=== PATIENT | female | born 1960 | race African-American/Black ===

== ENCOUNTER 2017-03-09 09:47 | Emergency (ER) | payer OTHER ==
[2017-03-09] MEDS ORDERED: IV NORMAL SALINE 1,000ML 1,000 ML IV SCH (10:22)
--- NOTE | 2017-03-09 10:28 | PHYS DOC ---
General Chief Complaint: ABDOMINAL PAIN Stated Complaint: ABDOMINAL PAIN Time Seen by MD: 10:15 Source: patient Exam Limitations: no limitations Problems: History of Present Illness Initial Comments Pt is 56/F [employer] to ED via private auto (drove self) c/o abdominal pain. Pt states for past 6 mos she's had intermittent exacerbations of epigastric pain. 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 States she "worked thru the pain" until 0715 today, had small BM at that time hoping she'd feel better. Driving home decided to come for evaluation. Has h/o lap band, SBO w/resection, saw her PCP Dr Mauricio Pagan for this 3-[address] felt sx due to lap band, he encouraged her to f/u bariatric surgeon Dr Mendoza Westfall who initially placed the band. Pt says she followed up with his office and colonoscopy ordered. Pt has had difficulty getting colonoscopy and as sx subsided did not follow thru with colonoscopy or follow up visits. Pt has had some "gagging" and nausea no emesis. Lap band placed 2008, 4 years ago SBO with resection. No fever/chills/cp/sob/bowel or bladder sx. ED VS 97.8, 84, 20, 144/94, 99% RA Timing/Duration: 4-6 hours Severity: severe Modifying Factors: improves with other Associated Symptoms: nausea/vomiting, other Allergies: Coded Allergies: Penicillins (Verified Allergy, Unknown, Rash, 03/09/17) Past Medical History Medical History: hypertension, other (morbid obesity, HTN, SBO) Surgical History: other (strangulated SBO, gastric band) Social History Smoker: non-smoker Alcohol: none Drugs: none Review of Systems Constitutional: denies chills, denies diaphoresis, denies fever, denies malaise Respiratory: denies cough, denies shortness of breath Cardiovascular: denies chest pain, denies palpitations Gastrointestinal: see HPI Genitourinary: denies dysuria, denies frequency, denies hematuria Musculoskeletal: denies back pain, denies joint swelling, denies neck pain Psychiatric/Neurological: denies headache, denies numbness, denies paresthesia Hematologic/Lymphatic: denies blood clots, denies easy bleeding, denies easy bruising Physical Exam General Appearance: moderate distress, obese Eyes: bilateral eye normal inspection, bilateral eye PERRL, bilateral eye EOMI Ear, Nose, Throat: hearing grossly normal, normal ENT inspection, normal pharynx Neck: non-tender, supple Respiratory: normal breath sounds, no respiratory distress Cardiovascular: normal peripheral pulses, regular rate, rhythm Gastrointestinal: soft (exquisite TTP to light skin touch, exam limited initially due to pt intolerance. After meds TTP primarily epigastric just right of midline, no masses, BS normal, neg mcburney), other (epigastric/RUQ TTP with guarding no rebound, no masses, BS diminished) Back: no CVA tenderness, no vertebral tenderness Extremities: other (3+ nonpitting LE edema) Neurologic/Psychiatric: pelota maker II-XII nml as tested, no motor/sensory deficits, alert, normal mood/affect, oriented x 3 Skin: normal color, warm/dry Orders, Labs, Meds EKG: NSR 71 bpm, PAC, no STEMI. Interpreted by Dr Cadena 1146: Time in department 1h 59min, labs/CT not resulted. Pt will have prolonged ED course due to RAD/Lab delay AAS: no acute processes, lap band noted. Interpreted by Dr Cadena. CT Abd/Pelvis with IV Contrast: nonspecific streaky edema or scarring mesentery and minimal diverticulosis, essentially unremarkable Labs unremarkable Pt persist with pain complaints despite fentanyl/toradol/GI cocktail. 1431: I discussed pt with her PCP Dr Pagan. He does not admit inpatients, recommends contacting bariatric surgeon. I contacted Dr Westfall's office, appt scheduled for 929 this Tuesday at their office. I discussed this with pt, she is agreeable to d/c home with symptomatic treatment and f/u Tuesday as discussed. Departure Time of Disposition: 15:20 Disposition: HOME, SELF-CARE Diagnosis: abdominal pain Condition: STABLE Patient Instructions: Abdominal Pain (Nonspecific) Additional Instructions: Rest, no strenuous activity. Off work thru 03/11/17. Aggressive hydration with gatorade, water (small frequent sips). Clear liquids today, advance slowly to bland foods tomorrow as tolerated. Rx: simethicone, reglan, dicyclomine, percocet 10mg #40 Take medications with food. Increase fluids/take OTC stool softeners to avoid opiate induced constipation. [facility] Tuesday morning at 0930. Your appointment is with Dr Bradley, please arrive at 0915 to update your paperwork. Return to ED with new or changing symptoms. DONYA CADENA DO Mar 09, 2017 10:28
[2017-03-09] MEDS ORDERED: KETOROLAC 30 MG/ML VIAL. ONE (10:34)
[2017-03-09] MEDS ORDERED: ONDANSETRON PF 4 MG/2 ML VIAL. ONE (10:34)
[2017-03-09] MEDS ORDERED: IV NORMAL SALINE 1,000ML 1,000 ML ONE (10:34)
[2017-03-09] MEDS ORDERED: fentaNYL PF 100 MCG/2 ML VIAL ONE (10:35)
[2017-03-09] MEDS ORDERED: FAMOTIDINE 20 MG/2 ML VIAL ONE (10:35)
[2017-03-09] MEDS: fentaNYL PF 100 MCG/2 ML VIAL IV PRN ×3 (10:40→12:06)
[2017-03-09] MEDS ORDERED: ONDANSETRON PF 4 MG/2 ML VIAL. IV ONE (10:45)
[2017-03-09] MEDS ORDERED: KETOROLAC 30 MG/ML VIAL. IV ONE (10:45)
[2017-03-09] MEDS ORDERED: FAMOTIDINE 20 MG/2 ML VIAL IVP ONE (10:45)
[2017-03-09 10:50] LABS: BASO % 1 % (0-3); EOS # 0.1 x10^3/uL (0.0-0.7); EOS % 1 % (0-3); HEMATOCRIT 36.5 % (36.0-47.0); HEMOGLOBIN 11.6 g/dL (12.0-15.5); LYMPH # 3.1 x10^3/uL (1.0-4.8); LYMPH % 35 % (24-48); MEAN CORPUSCULAR HEMOGLOBIN 24 pg (25-35); MEAN CORPUSCULAR HGB CONC 32 g/dL (31-37); MEAN CORPUSCULAR VOLUME 75 fL (79-100); MONO # 0.7 x10^3/uL (0.0-1.1); MONO % 8 % (0-9); NEUT % 55 % (31-73); PLATELET COUNT 225 x10^3/uL (140-400); RED BLOOD COUNT 4.85 x10^6/uL (3.50-5.40); RED CELL DISTRIBUTION WIDTH 16.4 % (11.5-14.5)
[2017-03-09 10:55] LABS: ALBUMIN 3.5 g/dL (3.4-5.0); ALBUMIN/GLOBULIN RATIO 0.7 (1.0-1.7); CALCIUM 8.9 mg/dL (8.5-10.1); CREATININE 0.9 mg/dL (0.6-1.0); MAGNESIUM 1.7 mg/dL (1.8-2.4); POTASSIUM 3.5 mmol/L (3.5-5.1); TOTAL BILIRUBIN 0.3 mg/dL (0.2-1.0); TOTAL PROTEIN 8.5 g/dL (6.4-8.2)
[2017-03-09] MEDS ORDERED: IOHEXOL 300 MG/ML 75 ML VIAL. IV ONE (11:00)
--- NOTE | 2017-03-09 11:47 | RAD ---
CT of the abdomen and pelvis with contrast, 03/09/2017: History: Epigastric pain Multidetector CT imaging was performed following an IV bolus injection of iodinated contrast material. No oral contrast material was administered for this exam. A lap band type device is in place related to the proximal aspect of the stomach. There is mild dilatation of the stomach and distal esophagus superior to this level. There are surgical sutures related to a cluster of small bowel loop in the right midabdomen. There is a slightly prominent fluid-filled small bowel loop at this level measuring just over 3 cm in greatest diameter. There is no definite evidence of bowel obstruction. There is mild streaky increased density in the mesenteric fat centrally and extending to the right at this level compatible with scarring versus nonspecific edema. There are granulomatous calcifications in the lower chest. There is no evidence of a hepatic mass or bile duct dilatation. The gallbladder is unremarkable. No pancreatic abnormality is seen. The spleen is of normal size. There is a 2 cm parapelvic renal cyst on the right. The kidneys show no evidence of obstruction. The abdominal aorta is of normal caliber. No periaortic, iliac or inguinal adenopathy is seen. The uterus is at the upper limits of normal in size. The appendix is visualized and is unremarkable. There are several small scattered colonic diverticula. No paracolonic inflammatory process is seen. No free fluid or free air is evident in the abdomen or pelvis. There are moderate degenerative changes involving the facet joints bilaterally in the lower lumbar spine with a slight associated spondylolisthesis at L4-5. IMPRESSION: 1. Previous abdominal surgeries with a lap band type device in place. 2. Previous small bowel surgery with nonspecific streaky edema or scarring in the central mesentery. 3. Minimal colonic diverticulosis. PQRS Compliance Statement: One or more of the following individualized dose reduction techniques were utilized for this examination: 1. Automated exposure control 2. Adjustment of the mA and/or kV according to patient size 3. Use of iterative reconstruction technique
--- NOTE | 2017-03-09 11:50 | RAD ---
Acute abdomen series with chest, 3 views, 03/09/2017: History: Pain A lap band device is in place. Gas is present in large and small bowel without significant bowel distention. No free air is seen in the abdomen. The liver is at the upper limits of normal in size. The heart size and pulmonary vascularity are normal. There is mild tortuosity of the thoracic aorta. No pulmonary infiltrates are seen. There is no evidence of pleural fluid. IMPRESSION: 1. A lap band device is in place. 2. No acute abdominal abnormality is detected.
--- NOTE | 2017-03-09 13:14 | EKG ---
[address] [address] Test Date: 2017-03-09 Test Time: 10:32:47 Pat Name: JAVED WOLF Department: Room: Gender: F [employer]: [place] : 1960 Requested By: DONYA CADENA Order Number: [id number] Reading MD: Measurements Intervals [place] Rate: 71 P: 0 PA: 162 QRS: -18 QRSD: 84 T: 8 QT: 396 QTc: 430 Interpretive Statements SINUS RHYTHM ATRIAL PREMATURE COMPLEX(ES) LEFTWARD AXIS OTHERWISE NORMAL ECG RI6.01 Unconfirmed report No previous ECG available for comparison
[2017-03-09] MEDS ORDERED: LIDO:MAALOX 1:1 20 ML SINGLE DOSE PO ONE (13:30)
[2017-03-09] MEDS ORDERED: HYDROmorphone PF 1 MG/ML DISP.SYRIN IV ONE (13:45)
[2017-03-09 13:54] LABS: BARBITURATES NEG (NEG); BENZODIAZEPINES NEG (NEG); CANNABINOIDS NEG (NEG); COCAINE NEG (NEG); METHADONE NEG (NEG); OPIATES NEG (NEG); PHENCYCLIDINE NEG (NEG)
[2017-03-09 13:55] LABS: AMPHETAMINE/METHAMPHETAMINE NEG (NEG)
[2017-03-09 14:02] LABS: BILIRUBIN,URINE NEG (NEG); CLARITY,URINE CLEAR; COLOR,URINE YELLOW; GLUCOSE,URINE NEG (NEG)
[2017-03-09 14:03] LABS: BACTERIA,URINE 0 /HPF (0-FEW); NITRITE,URINE NEG (NEG); RBC,URINE RARE /HPF (0-2); SQUAMOUS EPITHELIAL CELL,UR OCC /LPF; UROBILINOGEN,URINE 0.2 mg/dL (0.2 mg/dL); WBC,URINE 0 /HPF (0-4)
[2017-03-09] MEDS ORDERED: DICYCLOMINE HCL 20 MG TABLET PO ONE (14:45)
[2017-03-09] MEDS ORDERED: DICY20TA3 PO (15:19)
[2017-03-09] MEDS ORDERED: SIME80TA14 PO (15:19)
[2017-03-09] MEDS ORDERED: METO10TA81 PO (15:19)
[2017-03-09] MEDS ORDERED: OXYC-328 PO (15:19)
[2017-03-09] MEDS ORDERED: METOCLOPRAMIDE 10 MG TABLET PO ONE (15:30)
[2017-03-09] MEDS ORDERED: oxyCODONE/APAP 10/325 1 TAB TABLET PO ONE (15:30)
[2017-03-09] MEDS ORDERED: SIMETHICONE 80 MG TAB.CHEW PO ONE (15:30)
[2017-03-09 15:51] VITALS: BP 130/84
== END 2017-03-09 15:51 | disposition home or self-care (01) ==
LOC: ER 09:47
DX: R10.13 Epigastric pain (principal); I10 Essential (primary) hypertension; Z98.84 Bariatric surgery status; Z88.0 Allergy status to penicillin
CPT/HCPCS: 36415; 51701; 74022; 74177; 80053; 80307; 81001; 83605; 83690; 83735; 84484; 85025; 93005; 96361; 96374; 96375; 96376; 99285; J1170; J1885; J2405; J3010; J8597; Q9967; S0028; G0479; J7030

== ENCOUNTER → 2020-09-26 | Outpatient (CLI) | payer OTHER ==
[~2020-09-26] MED LIST: DICY20TA3 PO; METO10TA81 PO; OXYC1TAB22 PO; SIME80TA14 PO
[2020-09-26 09:54] LABS: BASO % 1 % (0-3); EOS # 0.1 x10^3/uL (0.0-0.7); EOS % 1 % (0-3); HEMATOCRIT 41.1 % (36.0-47.0); HEMOGLOBIN 13.1 g/dL (12.0-15.5); LYMPH # 2.2 x10^3/uL (1.0-4.8); LYMPH % 31 % (24-48); MEAN CORPUSCULAR HEMOGLOBIN 25 pg (25-35); MEAN CORPUSCULAR HGB CONC 32 g/dL (31-37); MEAN CORPUSCULAR VOLUME 78 fL (79-100); MONO # 0.8 x10^3/uL (0.0-1.1); MONO % 12 % (0-9); NEUT # 3.9 x10^3uL (1.8-7.7); NEUT % 55 % (31-73); PLATELET COUNT 249 x10^3/uL (140-400); RED BLOOD COUNT 5.25 x10^6/uL (3.50-5.40); RED CELL DISTRIBUTION WIDTH 15.6 % (11.5-14.5); WHITE BLOOD COUNT 7.1 x10^3/uL (4.0-11.0)
[2020-09-26 10:03] LABS: ALBUMIN 3.5 g/dL (3.4-5.0); ALBUMIN/GLOBULIN RATIO 0.6 (1.0-1.7); CALCIUM 9.3 mg/dL (8.5-10.1); CREATININE 0.7 mg/dL (0.6-1.0); GFR 104.4; POTASSIUM 4.1 mmol/L (3.5-5.1); TOTAL BILIRUBIN 0.3 mg/dL (0.2-1.0)
[2020-09-26 18:48] LABS: FREE T4 1.24 ng/dL (0.76-1.46); THYROID STIM HORMONE (TSH) 0.619 uIU/mL (0.358-3.740)
== END ==
LOC: LAB 08:38
PROVIDERS: ATTEND Internal Medicine
DX: E03.9 Hypothyroidism, unspecified (principal); I10 Essential (primary) hypertension
CPT/HCPCS: 36415; 80053; 80061; 83036; 84439; 84443; 85025